=== PATIENT | female | born 1995 | race Two or more races ===

== ENCOUNTER 2023-02-15 10:40 | Inpatient (IN) | payer OTHER ==
[~2023-02-15] VITALS: Ht 170.2 cm; Wt 2.3 kg
[2023-02-15] MEDS ORDERED: PRENATAL TABLE1 EAC1 PO (13:54)
[2023-02-15] MEDS ORDERED: NIFEDIPINE20 MG PO (13:55)
== END 2023-02-24 15:00 | disposition home or self-care (01) | DRG 786 ==
LOC: OB/GYN 10:40 → LDR 10:40 → OB/GYN 02-18 16:31
PROVIDERS: ADMIT Obstetrics & Gynecology Obstetrics; ATTEND Obstetrics & Gynecology Obstetrics
PROC: 4A1HXCZ Monitoring of Products of Conception, Cardiac Rate, External Approach (ICD-10-PCS; 2023-02-15)
PROC: 10D00Z1 Extraction of Products of Conception, Low, Open Approach (ICD-10-PCS; principal; 2023-02-21 13:00)
DX: O32.1XX0 Maternal care for breech presentation, not applicable or unspecified (principal); O60.14X0 Preterm labor third trimester with preterm delivery third trimester, not applicable or unspecified; O41.03X0 Oligohydramnios, third trimester, not applicable or unspecified; O36.5930 Maternal care for other known or suspected poor fetal growth, third trimester, not applicable or unspecified; Z3A.36 36 weeks gestation of pregnancy; Z37.0 Single live birth; Z20.822 Contact with and (suspected) exposure to COVID-19